=== PATIENT | female | born 1980 | race Hispanic/Latino ===

== ENCOUNTER 2023-05-17 10:48 | Emergency (ER) | payer OTHER, SELFPAY ==
[2023-05-17 11:09] LABS: Hematocrit 44.4 % (36.0-47.0); Hemoglobin 17.4 g/dL (12.0-16.0); Manual Diff?? YES; Mean Corpuscular HGB CONC 39.2 g/dL (32.0-36.0); Mean Corpuscular Hemoglobin 31.9 pg (27.0-31.0); Mean Corpuscular Volume 81.5 fl (78.0-98.0); Mean Platelet Volume 10.1 fL (7.4-10.4); Platelet Count 527 10x3/uL (130-400); RBC Distribution Width 15.1 % (11.5-14.5); Red Blood Cell (RBC) Count 5.45 mill/uL (4.20-5.40); White Blood Cell (WBC) Count 21.1 10x3/uL (4.8-10.8)
[2023-05-17 11:11] LABS: Delete Auto Diff?? YES
[2023-05-17 11:24] LABS: Phosphorus 5.3 mg/dL (2.3-4.7)
[2023-05-17] MEDS ORDERED: Ondansetron PF 4 MG/2 ML Vial ONE (11:34)
[2023-05-17] MEDS ORDERED: Morphine 4 MG/ML VIAL ONE (11:34)
[2023-05-17 11:40] LABS: Base Excess -23.2 mEq/L (-2.0 to +3.0); Calcium, Ionized (venous) 1.27 mmol/L (1.16-1.32); Chloride (VBG) 96 mmol/L (98-106); Hematocrit-VBG 44 % (36.0-47.0); Hemoglobin (Hb) 15.1 g/dL (11.7-15.5); Potassium (VBG) 4.05 mmol/L (3.70-5.30); Sodium 139 mmol/L (133-146)
[2023-05-17 11:46] LABS: pH (venous) 7.003 (7.32-7.43)
[2023-05-17 11:51] LABS: Anisocytosis SLIGHT = 6-15 cells HPF (0-5); Band 5 % (5-11); CellaVision Operator ID LAB.KW3; Lymphocytes 6 % (21-51); Monocytes 5 % (0-10); Neutrophil 84 % (42-75); Platelet Adequacy Comment Platelets Increased; Schistocytes SLIGHT = 2-5 cells HPF (0-1); Total Cell Count 102
[2023-05-17] MEDS ORDERED: diphenhydrAMINE 50 MG/ML VIAL ONE (11:54)
[2023-05-17 11:55] LABS: BHCG - Serum Negative (NEGATIVE); Pregs Control Background? CLEAR/WHITE (CLR/WHITE); Pregs Control Bar Appear? YES (CONTROL BAR)
[2023-05-17] MEDS ORDERED: methylPREDNISolone Sod Succ 40 MG VIAL ONE (11:55)
[2023-05-17] MEDS ORDERED: Famotidine/PF 20 mg/2ml Vial ONE (11:55)
[2023-05-17 11:56] LABS: ALT (SGPT) Less than 35 U/L (8-55); BUN (Urea Nitrogen) Less than 20 mg/dL (7.0-18.7)
[2023-05-17] MEDS ORDERED: Vancomycin 1 GM/200 ML (FROZEN) BAG ONE (12:01)
[2023-05-17] MEDS ORDERED: Sodium Chloride 0.9% 100 ML ONE (12:01)
[2023-05-17] MEDS ORDERED: Piperacillin/Tazobactam 3.375 GM VIAL ONE (12:01)
[2023-05-17] MEDS ORDERED: Sodium Bicarb 50 mEq/50 ML VIAL ONE (12:01)
[2023-05-17 12:07] LABS: Protein, Total 10.8 g/dL (6.0-8.3)
[2023-05-17 12:10] LABS: Calc. Creatinine Clearance 0 mL/min (70-130); Estimated GFR 36
[2023-05-17 12:12] LABS: AST (SGOT) 14 U/L (5-34)
[2023-05-17 12:13] LABS: Calcium 9.9 mg/dL (7.8-10.44); Carbon Dioxide Less than 8 mmol/L (22-29); Chloride 89 mmol/L (98-107); Critical Call Chemistry NUR.DP6 @1212; Glucose 384 mg/dL (70-105); Lipase 70 U/L (8-78); Magnesium 2.4 mg/dL (1.6-2.6); Potassium 3.7 mmol/L (3.5-5.1); Sodium 121 mmol/L (136-145)
[2023-05-17] MEDS ORDERED: Sodium Bicarbonate 150 MEQ in Dextrose 5% in Water 1,000 ML FS SCH (12:15)
[2023-05-17 12:16] LABS: Troponin I Less than 0.010 ng/mL (< 0.028)
[2023-05-17 12:27] LABS: Alkaline Phosphatase 134 U/L (40-110)
[2023-05-17 12:35] LABS: Bacteria/HPF None Seen HPF (None Seen); Bilirubin Negative (Negative); Blood, Urine 1+ (Negative); CAUTI Indications for Culture Alt mental st,lethar; Clarity Clear (Clear); Glucose, Urine (Dipstick) Greater than 1000 mg/dL (Negative); Ketone, Urine 150 mg/dL (Negative); Leukocyte Negative Leu/uL (Negative); Nitrite Negative (Negative); Protein, Urine (Dipstick) 50 mg/dL (Neg-Trace); RBC/HPF 0-3 HPF (0-3); Specific Gravity, Urine 1.018 (1.002-1.036); Squamous Epithelial 0-3 HPF (0-3); Urobilinogen Normal mg/dL (Less than 2); WBC/HPF 0-3 HPF (0-3)
[2023-05-17 12:36] LABS: Urine Culture Reflex No No
[2023-05-17 13:15] LABS: Influenza A by NAA Not Detected (NotDetected); Influenza B by NAA Not Detected (NotDetected); SARS-CoV-2 NAA Rapid Test Not Detected (NotDetected)
[2023-05-17] MEDS ORDERED: NS 0.9% w/ 40 MEQ KCL 1,000 ML IV SCH (13:30)
[2023-05-17 15:08] LABS: Lactic Acid 1.6 mmol/L (0.5-2.2)
[2023-05-17] MEDS ORDERED: Potassium Chloride 20 MEQ TAB ONE (17:05)
== END 2023-05-17 17:57 | disposition short-term general hospital (02) ==
LOC: ERS 10:48
DX: E11.10 Type 2 diabetes mellitus with ketoacidosis without coma (principal); K81.0 Acute cholecystitis; E87.1 Hypo-osmolality and hyponatremia; R00.0 Tachycardia, unspecified; E78.00 Pure hypercholesterolemia, unspecified; Z79.84 Long term (current) use of oral hypoglycemic drugs; Z79.899 Other long term (current) drug therapy; Z75.8 Other problems related to medical facilities and other health care
CPT/HCPCS: 36415; 36416; 74177; 80053; 81001; 82010; 82805; 83605; 83690; 83735; 83930; 84100; 84484; 84703; 85025; 87040; 87086; 93005; 96361; 96365; 96366; 96368; 96375; J1200; J2270; J2405; J2543; J2920; J3370-JW; J3480; J3490; J7070; S0028